=== PATIENT | female | born 1955 | race Caucasian/White ===

== ENCOUNTER 2017-09-23 21:21 | Emergency (ER) | payer SELFPAY | END 2017-09-23 23:05 | disposition home or self-care (01) | LOC: NAV ERS 21:21 | DX: L08.9 Local infection of the skin and subcutaneous tissue, unspecified (principal); F41.9 Anxiety disorder, unspecified; F32.9 Major depressive disorder, single episode, unspecified; F43.10 Post-traumatic stress disorder, unspecified; E10.9 Type 1 diabetes mellitus without complications; M26.609 Unspecified temporomandibular joint disorder, unspecified side; Z79.899 Other long term (current) drug therapy; Z87.891 Personal history of nicotine dependence | CPT/HCPCS: 87070; 87205; 99283 ==

== ENCOUNTER 2019-05-29 09:44 | Emergency (ER) | payer OTHER, SELFPAY ==
[2019-05-29 10:39] LABS: #Basophils 0.1 thou/uL (0.0-0.2); #Eosinphils 0.1 thou/uL (0.0-0.7); #Lymphocytes 1.7 thou/uL (1.20-3.40); #Monocytes 0.2 thou/uL (0.11-0.59); %Eosinophils 0.9 % (0.0-10.0); %Lymphocytes 20.8 % (21.0-51.0); %Monocytes 2.4 % (0.0-10.0); %Neutrophils 74.9 % (42.0-75.0); Hemoglobin 12.9 g/dL (12.0-16.0); Mean Corpuscular HGB CONC 33.1 g/dL (32.0-36.0); Mean Corpuscular Volume 87.6 fL (78.0-98.0); Mean Platelet Volume 8.1 fL (7.4-10.4); Platelet Count 240 thou/uL (130-400); RBC Distribution Width 12.6 % (11.5-14.5); Red Blood Cell (RBC) Count 4.44 mill/uL (4.20-5.40); White Blood Cell (WBC) Count 7.9 thou/uL (4.8-10.8)
[2019-05-29 10:54] LABS: ALT (SGPT) 54 U/L (8-55); AST (SGOT) 69 U/L (5-34); Albumin 4.1 g/dL (3.4-4.8); Alkaline Phosphatase 105 U/L (40-110); Anion Gap 16 mmol/L (10-20); BUN (Urea Nitrogen) 8 mg/dL (9.8-20.1); Bilirubin, Total 0.4 mg/dL (0.2-1.2); Calc. Creatinine Clearance 0 mL/min (70-130); Calcium 9.3 mg/dL (7.8-10.44); Carbon Dioxide 23 mmol/L (23-31); Chloride 103 mmol/L (98-107); Estimated GFR-MDRD 76; Globulin 3.2 g/dL (2.4-3.5); Glucose 254 mg/dL (80-115); Potassium 3.8 mmol/L (3.5-5.1); Protein, Total 7.3 g/dL (6.0-8.3); Sodium 138 mmol/L (136-145)
[2019-05-29] MEDS ORDERED: Meclizine HCl 25 MG TAB ONE (11:16)
[2019-05-29] MEDS ORDERED: Sodium Chloride 0.9% 1,000 ML ONE (11:16)
[2019-05-29] MEDS ORDERED: Promethazine HCl 25 MG/ML VIAL ONE (11:16)
[2019-05-29] MEDS ORDERED: Insulin Regular 300 UNITS/3 ML VIAL ONE (11:16)
[2019-05-29 11:30] LABS: Bilirubin Negative (Negative); Blood, Urine Trace (Negative); Clarity Slightly Cloudy (Clear); Glucose, Urine (Dipstick) 100 mg/dL (Negative); Leukocyte Trace (Negative); Nitrite Positive (Negative); Protein, Urine (Dipstick) 30 mg/dL (Neg-Trace); Urobilinogen 0.2 mg/dL (Less than 2)
[2019-05-29 11:42] LABS: Bacteria/HPF 2+ HPF (None Seen); RBC/HPF 0-3 HPF (0-3); Squamous Epithelial 0-3 HPF (0-3); WBC/HPF 0-3 HPF (0-3)
== END 2019-05-29 14:05 | disposition home or self-care (01) ==
LOC: NAV ERS 09:44
DX: H81.399 Other peripheral vertigo, unspecified ear (principal); H55.00 Unspecified nystagmus; E13.9 Other specified diabetes mellitus without complications; Z87.891 Personal history of nicotine dependence
CPT/HCPCS: 36416; 80053; 81003; 81015; 82550; 85025; 93005; 96365; 96366; 96375; 96376; J1815; J2550; J7050; J8597

== ENCOUNTER 2022-07-30 18:29 | Emergency (ER) | payer MEDICARE, OTHER, SELFPAY ==
[2022-07-30] MEDS ORDERED: Dexamethasone 4 MG TAB ONE (19:53)
[2022-07-31] MEDS ORDERED: Lidocaine 5% Patch TD SCH (09:00)
== END 2022-07-30 21:32 | disposition home or self-care (01) ==
LOC: NAV ERS 18:29
DX: M54.9 Dorsalgia, unspecified (principal); E11.9 Type 2 diabetes mellitus without complications; Z79.4 Long term (current) use of insulin; Z87.891 Personal history of nicotine dependence
CPT/HCPCS: 71046; J8540